=== PATIENT | male | born 1945 | race Caucasian/White ===

== ENCOUNTER 2018-05-29 10:57 | Inpatient (IN) | payer MEDICARE, OTHER ==
[~2018-05-29] VITALS: Ht 172.7 cm; Wt 43.2 kg
[2018-05-29] MEDS ORDERED: normal saline 1000ML IV soln IV ONE (11:15)
[2018-05-29 11:35] LABS: BASOPHILS % (AUTO) 0.3 % (0-1); EOSINOPHILS % (AUTO) 0 % (0-6); HEMATOCRIT 39.8 % (42.0-52.0); LYMPHOCYTES # (AUTO) 1.1 X10'3 (1.1-4.8); LYMPHOCYTES % (AUTO) 7.5 % (21-51); MEAN CORPUSCULAR HGB CONC 32.6 % (33.0-36.5); MEAN CORPUSCULAR VOLUME 91.8 FL (78-98); MEAN PLATELET VOLUME 10.3 FL (7.4-10.4); MONOCYTES # (AUTO) 0.8 X10'3 (0-0.9); MONOCYTES % (AUTO) 5.2 % (2-12); NEUTROPHILS # (AUTO) 12.6 X10'3 (1.8-7.7); PLATELET COUNT 285 X10'3 (140-440); RED BLOOD COUNT 4.34 X10'6 (4.70-6.10); RED CELL DISTRIBUTION WIDTH 14.9 % (11.5-14.5); WHITE BLOOD COUNT 14.5 X10'3 (4.5-11.0)
[2018-05-29 11:40] LABS: PARTIAL THROMBOPLASTIN TIME 26 SECONDS (22-32); PROTHROMBIN TIME 10.7 SECONDS (9.0-12.0)
[2018-05-29 11:55] LABS: ALANINE AMINOTRANSFERASE 28 U/L (12-78); ALBUMIN/GLOBULIN RATIO 0.7 (1.1-1.5); ALKALINE PHOSPHATASE 79 IU/L (46-116); ANION GAP 18 (8-16); ASPARTATE AMINO TRANSFERASE 41 U/L (10-37); BILIRUBIN,TOTAL 0.4 MG/DL (0.1-1.0); BLOOD UREA NITROGEN 131 MG/DL (7-18); BUN/CREATININE RATIO 26.8 (5.4-32.0); CALCIUM 9.8 MG/DL (8.5-10.1); CHLORIDE 122 MMOL/L (99-107); CREATININE 4.89 MG/DL (0.60-1.10); GLUCOSE 112 MG/DL (70-104); MAGNESIUM 2.7 MG/DL (1.5-2.4); TOTAL CARBON DIOXIDE 23.7 MMOL/L (24-32); TOTAL PROTEIN 7.1 G/DL (6.4-8.2); eGFR 12 ML/MIN
[2018-05-29 12:00] LABS: SODIUM 164 MMOL/L (135-145)
[2018-05-29] MEDS ORDERED: normal saline 1000ml 1,000 ML IV ONE (12:19)
[2018-05-29 13:23] LABS: CLARITY,URINE CLOUDY (Clear); GLUCOSE, URINE NEGATIVE (Neg); KETONES,URINE NEGATIVE (Neg); LEUKOCYTE ESTERASE ,URINE NEGATIVE (Neg); NITRITES, URINE NEGATIVE (Neg); OCCULT BLOOD,URINE LARGE (Neg); PH,URINE 5.5 (4.8-8.0); PROTEIN,URINE 100 mg/dl (Neg); UROBILINOGEN,URINE 0.2 E.U/dL (0.2-1.0)
[2018-05-29 13:30] LABS: UA COLLECTION TYPE FOLEY CATH
[2018-05-29 13:31] LABS: COLOR,URINE DARK YELLOW (Yellow)
[2018-05-29 13:33] LABS: AMORPHOUS URATES 2+; BACTERIA,URINE NONE SEEN /HPF (Neg); MUCUS STRANDS NONE SEEN /LPF (Neg); SQUAMOUS EPITHELIAL CELL,UR NONE SEEN /LPF (FEW); WBC,URINE NONE SEEN /HPF (0-4)
[2018-05-29] MEDS ORDERED: acetaminophen 325mg tablet PO PRN (13:35)
[2018-05-29] MEDS ORDERED: magnesium hydroxide 30ml (MOM) UD suspension PO PRN (13:35)
[2018-05-29] MEDS ORDERED: morphine 2 MG/ML inj. syringe IV PRN ×2 (13:35)
[2018-05-29] MEDS ORDERED: bisacodyl 10mg suppository rectal RC PRN (13:35)
[2018-05-29] MEDS ORDERED: HYDROcodone/acetaminophen 10/325mg tab PO PRN (13:35)
[2018-05-29] MEDS ORDERED: LORazepam 2 mg/ml vial IV PRN (13:35)
[2018-05-29] MEDS ORDERED: HYDROcodone/acetaminophen 5mg/325mg tablet PO PRN (13:35)
[2018-05-29] MEDS ORDERED: mag hydrox/Alum hydrox/simeth 30ml oral suspension PO PRN (13:35)
[2018-05-29] MEDS ORDERED: morphine 10mg/0.5ml (conc. morphine) oral syringe PO PRN (13:35)
[2018-05-29] MEDS ORDERED: MICO14CR5 TOP (13:51)
[2018-05-29] MEDS ORDERED: CARB1TAB23 PO (13:51)
[2018-05-29] MEDS ORDERED: QUET-1 PO (13:51)
[2018-05-29] MEDS ORDERED: TRIH5TAB2 PO (13:51)
[2018-05-29] MEDS ORDERED: ANTIFUNGAL (13:51)
[2018-05-29] MEDS ORDERED: QUET300T2 PO (13:51)
[2018-05-29 16:40] VITALS: BP 144/64
[2018-05-29 19:00] VITALS: BP 151/82
[2018-05-30 07:07] VITALS: BP 139/76
[2018-05-30 08:00] VITALS: BP 139/76
[2018-05-30 19:00] VITALS: BP 147/72
[2018-05-31 07:13] VITALS: BP 157/76
== END 2018-05-31 15:35 | disposition hospice, home (50) | DRG 70 ==
LOC: ER 11:00 → ED HOLD 13:33 → EDBEDREQ 14:52 → SUR 3N 15:55
PROVIDERS: ADMIT Internal Medicine; ATTEND Internal Medicine
DX: G93.40 Encephalopathy, unspecified (principal); E43 Unspecified severe protein-calorie malnutrition; J18.9 Pneumonia, unspecified organism; N17.9 Acute kidney failure, unspecified; E87.0 Hyperosmolality and hypernatremia; E87.1 Hypo-osmolality and hyponatremia; F05 Delirium due to known physiological condition; Z68.1 Body mass index [BMI] 19.9 or less, adult; F10.97 Alcohol use, unspecified with alcohol-induced persisting dementia; G20 Parkinson's disease; R62.7 Adult failure to thrive; E86.0 Dehydration; F41.1 Generalized anxiety disorder; Z51.5 Encounter for palliative care; R40.2420 Glasgow coma scale score 9-12, unspecified time; F32.9 Major depressive disorder, single episode, unspecified; R91.8 Other nonspecific abnormal finding of lung field; Z79.899 Other long term (current) drug therapy; Z82.0 Family history of epilepsy and other diseases of the nervous system
CPT/HCPCS: 36415; 70450; 71045; 80053; 81001; 83605; 83735; 84145; 85025; 85610; 85730; 87040; 87070; 87077; 87186; 93005; 96360; 99285